=== PATIENT | female | born 1990 | race Caucasian/White ===

== ENCOUNTER 2019-02-11 08:41 | Inpatient (IN) | payer SELFPAY ==
[2019-02-11] MEDS ORDERED: MISOPROSTOL 200 MCG TAB PR PRN (08:51)
[2019-02-11] MEDS ORDERED: LR 1,000 ML IV PRN (08:51)
[2019-02-11] MEDS ORDERED: IBUPROFEN 600 MG TAB PO PRN (08:51)
[2019-02-11] MEDS ORDERED: OXYTOCIN/RINGERS LACTATE 1,000 ML IV PRN (08:51)
[2019-02-11] MEDS ORDERED: OLIVE OIL 118 ML BTL MISC PRN (08:51)
[2019-02-11] MEDS ORDERED: LIDOCAINE 1% 300 MG/30 ML SDV SC PRN (08:51)
[2019-02-11] MEDS ORDERED: PENICILLIN G POTASSIUM 5,000,000 UNIT in D5W 150 ML IV ONE (08:51)
[2019-02-11] MEDS ORDERED: EPSOM SALT 454 GM TP PRN (08:51)
[2019-02-11] MEDS ORDERED: LIDOCAINE 1% 300 MG/30 ML SDV ONE (09:08)
[2019-02-11] MEDS ORDERED: OLIVE OIL 118 ML BTL MISC ONE (09:08)
[2019-02-11 09:09] LABS: PLATELET COUNT 198 10^3/uL (150-400)
[2019-02-11] MEDS ORDERED: AMMONIA AROMATIC 1 EACH AMP IH ONE (09:09)
[2019-02-11] MEDS ORDERED: MISOPROSTOL 200 MCG TAB ONE (09:09)
[2019-02-11] MEDS ORDERED: OXYTOCIN 10 UNIT/ML VIAL ONE (09:09)
--- NOTE | 2019-02-11 10:17 | PDGENHP ---
History and Physical History and Physical: H&P done after delivery due to precipitous labor and delivery Care: [facility] HPI: Patient is a 28yo @39-5 weeks that presents to L&D with complaints of contractions over the last couple days, but really consistent starting at 0700. She denies any LOF, VB. She reports +FM. EDC: 02/13/2018 which is based on LMP: 05/09/2018 which is known and consistent with Ultrasound at 10weeks. Her is complicated by: h/o UTI Review of Systems: Constitutional: Denies any fever, chills, or fatigue HEENT: denies any visual changes, difficulty swallowing, hearing loss Cardiovascular: Denies any chest pain, palpitations, leg swelling Respiratory: denies any cough, wheezing, or shortness of breathe GI: Denies any nausea, vomiting, diarrhea, constipation : denies any dysuria, urgency, frequency, vaginal bleeding Musculoskeletal: denies any muscle or bone pain Skin: denies any rashes Neuro: denies any headache, seizures, lightheadedness, dizziness, or loss of consciousness Psychiatric: denies any depression, anxiety, or SI/HI thoughts HISTORY: Previous OB history: x2 Past medical history: noncontributory Past surgical history:none Social: Denies any alcohol, tobacco, or drug use. Nathan, 2 kids Darren and Jessica. She is a SAHM Family history: Not relevant Medications: PNV Allergies (list reaction): NKDA LABS: Rh: O+ ABS: Neg Rubella: Immune HbsAg: NR HIV: NR VDRL: NR 1hr: 87 GC: Neg Chlamydia: Neg Pap: Normal 2017 per pt NL GBS: + BMI: (prepreg) 23 PHYSICAL EXAM: Constitutional: WN, A&Ox3 HEENT: normocephalic atraumatic, supple Skin: Warm, dry, intact Heart: RRR, no murmur Chest: CTA-B Abdomen: Soft, nontender, gravid SVE: C/C/0 Extremities: no edema, negative homans sign Neuro: grossly normal Psych: normal affect assessment: FHT baseline 125 +accels, no decels, moderate variability Contractions: toco q 2-4 Assessment: * [id number] with IUP@ 39-5wks * ACtive labor * GBS+ * cat 1 FHR tracing Plan: * Admit to L&D * IV abx 2/2 +GBS * anticipate Today's visit was approximately 30 min, of which >50% of visit 20 min, was spent face to face with pt on direct counseling/coordination of care.
[2019-02-11] MEDS ORDERED: SIMETHICONE 80 MG TAB CHEW PO PRN (10:18)
[2019-02-11] MEDS ORDERED: oxyCODONE IR 5 MG TAB PO PRN (10:18)
[2019-02-11] MEDS ORDERED: HYDROCORTISONE 0.5% CREAM TP PRN (10:18)
--- NOTE | 2019-02-11 10:31 | OBDEL ---
Info Type: Vaginal Presentation at Delivery: Vertex L&D Analgesia/Anesthesia Type: None GBS+: Yes Intrapartum Medications: Discontinued Medications Generic Name Dose Route Start Last Admin Trade Name Marita PRN Reason Stop Dose Admin Penicillin G Potassium 5,000, 160 mls @ 160 mls/hr 02/11/19 08:51 02/11/19 10 :08 000 unit/ Dextrose IV 02/11/19 09:50 Not Given ONCE ONE Protocol Ibuprofen 600 mg 02/11/19 08:51 02/11/19 10:01 Motrin PO 600 mg ONCE PRN Administration post , pain Indications for Delivery: Spontaneous Labor, SROM Vaginal Delivery - Delivery Provider Delivery Physician/CNM: Patricia Portillo - Labor and Delivery Onset of Contractions Date: 02/11/19 Onset of Contractions Time: 07:00 Onset of Contractions Type: Spontaneous Rupture of Membranes Date: 02/11/19 Rupture of Membranes Time: 09:18 Rupture of Membranes Type: Spontaneous Amniotic Fluid Color: Clear Dilation Complete Date: 02/11/19 Dilation Complete Time: 09:04 Placenta Delivery Date: 02/11/19 Placenta Delivery Time: 09:36 Total Hours of Labor: 2 Laceration: 1st Degree Vaginal Sponge Count Correct: Yes Vaginal Needle Count Correct: Yes Vaginal Sweep Performed: Yes EBL: 150 Delivery Events: None Delivery Comment: delivered on hands and knees [place] Data MARIYA: 02/13/19 Gestational Age: 39 week(s) and 5 day(s) Her[place] Delivery Date: 02/11/19 Delivery Time: 09:28 Sex of Infant: Female Score (1 Min): 8 Score (5 Min): 9 ICD10 Worksheet Patient Problems: Problems Problem Status Onset GBS (group B Streptococcus carrier), +RV culture, currently Acute Precipitous delivery Acute (spontaneous vaginal delivery) Acute - ICD10 Problem Qualifiers (1) GBS (group B Streptococcus carrier), +RV culture, currently (2) (spontaneous vaginal delivery) (3) Precipitous delivery
[2019-02-11] MEDS: ACETAMINOPHEN 325 MG TAB PO PRN ×3 (12:29→23:57)
[2019-02-11] MEDS ORDERED: PENICILLIN G POTASSIUM 2,500,000 UNIT in D5W 150 ML IV SCH (12:52)
[2019-02-11] MEDS: IBUPROFEN 600 MG TAB PO PRN ×2 (15:10→23:56)
[2019-02-11] MEDS: DOCUSATE SODIUM 100 MG CAP PO PRN (23:56)
[2019-02-12] MEDS: IBUPROFEN 600 MG TAB PO PRN ×4 (06:06→23:32)
[2019-02-12] MEDS: ACETAMINOPHEN 325 MG TAB PO PRN ×4 (06:06→23:31)
[2019-02-12] MEDS: DOCUSATE SODIUM 100 MG CAP PO PRN ×2 (08:39→23:32)
--- NOTE | 2019-02-12 08:59 | OBPP ---
Progress Note Assessment/Plan: Assessment: Plan: Subjective/ Course: 02/12/19 08:57 Breast feeding well. APNO ordered b/c pt has history of breast feeding difficulties. Bleeding moderate. Pain well controlled with PO medications. Objective: 02/11/19 08:55 Patient ABO/Rh O POSITIVE 02/11/19 08:55 Temp Pulse Resp BP Pulse Ox 36.6 C 66 16 98/62 L 95 02/11/19 20:05 02/11/19 20:05 02/11/19 20:05 02/11/19 20:05 02/11/19 20:05 Uterine Position/Fundal Height: At Umbilicus Uterine Tone: Firm
[2019-02-13] MEDS: IBUPROFEN 600 MG TAB PO PRN ×2 (05:30→11:18)
[2019-02-13] MEDS: ACETAMINOPHEN 325 MG TAB PO PRN ×2 (05:31→11:17)
[2019-02-13 09:10] VITALS: BP 102/71
--- NOTE | 2019-02-13 11:19 | OBGCSDC ---
General Delivery Information - General Info : 3 Para: 3 Abortions: 0 Type: Vaginal L&D Analgesia/Anesthesia Type: None Admission Date: 02/11/19 Labs: Patient ABO/Rh O POSITIVE 02/11/19 08:55 Hct 40.2 % (38.0-47.0) 02/11/19 08:55 - Hospital Course : 02/12/19 08:57 Breast feeding well. APNO ordered b/c pt has history of breast feeding difficulties. Bleeding moderate. Pain well controlled with PO medications. 02/13/19 11:17 S) Pt doing well, reports min pain and bleeding. she is ambulating and voiding without difficulty. She is . She desires discharge home today. O) VSS, afebrile constitutional: WNWF, A&Ox3 HEENT: normocephalic, atraumatic, supple Heart: RRR, No murmur Chest: CTA-B Abdomen: Soft, nontender Uterus: Firm at U-2 Lochia: Minimal rubra Perineum: Intact, healing well Extremities: Trace edema, and negative Donte's sign Neuro: Grossly normal A) 28 year-old P 3 S/P PPD#2 P) Discharge home today Continue Pelvic rest x6wks Discussed danger signs (infection, preeclampsia, depression, heavy bleeding, etc) RTO in 2/4/6 weeks Vaginal - Delivery Provider Delivery Physician/CNM: Patricia Portillo - Diagnosis Labor: Spontaneous Rupture of Membranes Type: Spontaneous Amniotic Fluid Color: Clear Laceration: 1st Degree Delivery Events: None - Delivery EBL: 150 Data MARIYA: 02/13/19 Gestational Age: 40 week(s) and 0 day(s) Herrera Delivery Date: 02/11/19 Delivery Time: 09:28 Sex of Infant: Female [place] Weight (gm): 3745 g Score (1 Min): 8 Score (5 Min): 9 Discharge Information - Discharge Information Condition: Good Instruction/Follow Up: Two Weeks, Six Weeks
== END 2019-02-13 12:07 | disposition home or self-care (01) | DRG 807 ==
LOC: FLD 08:41 → FOB 11:56
PROVIDERS: ADMIT Advanced Practice Midwife; ATTEND Advanced Practice Midwife
PROC: 10E0XZZ Delivery of Products of Conception, External Approach (ICD-10-PCS; principal; 2019-02-11)
PROC: 0HQ9XZZ Repair Perineum Skin, External Approach (ICD-10-PCS; principal; 2019-02-11)
DX: O62.3 Precipitate labor (principal); O70.0 First degree perineal laceration during delivery; O99.824 Streptococcus B carrier state complicating childbirth; Z87.440 Personal history of urinary (tract) infections; Z3A.39 39 weeks gestation of pregnancy; Z37.0 Single live birth
CPT/HCPCS: J2540; J2590